=== PATIENT | female | born 1955 | race Caucasian/White ===

== ENCOUNTER 2016-07-26 09:54 | Emergency (ER) | payer MEDICARE, SELFPAY | END 2016-07-26 12:46 | disposition home or self-care (01) | LOC: ER 09:54 | DX: R20.0 Anesthesia of skin (principal); S01.402A Unspecified open wound of left cheek and temporomandibular area, initial encounter; Z90.49 Acquired absence of other specified parts of digestive tract; Z88.1 Allergy status to other antibiotic agents; Z88.8 Allergy status to other drugs, medicaments and biological substances | CPT/HCPCS: 70450; 99283; 99284-25 ==